=== PATIENT | male | born 1960 ===

== ENCOUNTER 2016-11-14 19:35 | Inpatient (IN) | payer BC ==
[2016-11-14 19:43] VITALS: BMI 26.6
[2016-11-14 21:51] LABS: BASO # 0.1 K/uL (0.0-0.2); BASO % 0.6 % (0.0-2.0); EOS % 0.2 % (0.0-4.0); HEMATOCRIT 40.5 % (35.0-51.0); LYMPH # 1.3 K/uL (1.0-4.3); LYMPH % 5.7 % (20.0-40.0); MEAN CELL VOLUME 92.4 fL (80.0-94.0); MEAN CORPUSCULAR HEMOGLOBIN 29.9 pg (27.0-31.0); MEAN CORPUSCULAR HGB CONC 32.3 g/dL (33.0-37.0); MEAN PLATELET VOLUME 11.7 fL (7.2-11.7); MONO # 1.6 K/uL (0.0-0.8); MONO % 7.1 % (0.0-10.0); NRBC % 0.1 % (0.0-2.0); PLATELET COUNT 430 K/uL (130-400); RED CELL DISTRIBUTION WIDTH 17.8 % (11.5-14.5)
[2016-11-14 21:57] LABS: CHLORIDE 92 mmol/L (98-107); POTASSIUM 3.7 mmol/L (3.6-5.2); SODIUM 135 mmol/L (132-148)
[2016-11-14 21:58] LABS: INR 1.4
[2016-11-14 21:59] LABS: BILIRUBIN,TOTAL 3.1 mg/dL (0.2-1.3); CARBON DIOXIDE 28 mmol/L (22-30); GFR AFRICAN-AMERICAN > 60
[2016-11-14 22:00] LABS: ALB/GLOB RATIO 0.8 (1.0-2.1); ALKALINE PHOSPHATASE 287 U/L (38-126); ALT/SGPT 52 U/L (21-72); AST/SGOT 176 U/L (17-59); BLOOD UREA NITROGEN 15 mg/dL (9-20); CALCIUM 8.6 mg/dl (8.6-10.4); GLUCOSE,RANDOM 113 mg/dL (75-110); PHOSPHOROUS 3.5 mg/dL (2.5-4.5); TOTAL PROTEIN 7.9 g/dL (6.3-8.3)
[2016-11-14 22:01] LABS: ALCOHOL SERUM < 10 mg/dl (0-10); MAGNESIUM 1.8 mg/dL (1.6-2.3)
[2016-11-14 22:29] LABS: EOSINOPHIL 1 % (0-4); NEUTROPHIL 84 % (50-75); TOTAL CELLS COUNTED 100
[2016-11-14 22:31] LABS: LARGE PLATELETS PRESENT
[2016-11-14] MEDS ORDERED: Iohexol 240 (50 ml) PO STA (22:34)
[2016-11-14] MEDS ORDERED: Iohexol 240 (50 ml) ONE (22:45)
[2016-11-15] MEDS ORDERED: Iodixanol 320 MG/ML 100 ML BOTTLE IV ONE (00:52)
[2016-11-15 01:41] LABS: GRANULAR CAST 467 /lpf (0-1); RBC URINE 4 /hpf (0-3); URINE BACTERIA RARE (<OCC); URINE BILIRUBIN NEGATIVE (NEGATIVE); URINE BLOOD NEGATIVE (NEGATIVE); URINE COLOR Amber (YELLOW); URINE GLUCOSE (UA) NORMAL (Normal); URINE KETONE NEGATIVE (NEGATIVE); URINE LEUKOCYTE ESTERASE NEG Leu/uL (Negative); URINE PROTEIN 1+ mg/dL (NEGATIVE); URINE UROBILINOGEN NORMAL mg/dL (0.2-1.0); WBC URINE 26 /hpf (0-5)
--- NOTE | 2016-11-15 01:52 | CT ---
EXAM: CT Abdomen and Pelvis With Intravenous Contrast. CLINICAL HISTORY: 56 years old, male; Pain; Abdominal pain; Prior surgery; Patient HX: [id number]; Additional info: Abd pain TECHNIQUE: Axial computed tomography images of the abdomen and pelvis with intravenous contrast. This CT exam was performed using one or more of the following dose reduction techniques: automated exposure control, adjustment of the mA and/or kV according to patient size, and/or use of iterative reconstruction technique. Coronal and sagittal reformatted images were created and reviewed. CONTRAST: 100 mL of [id number] administered intravenously. EXAM DATE/TIME: 11/14/2016 10:35 PM COMPARISON: There are no prior studies for comparison. FINDINGS: Lower thorax: Heart size is normal. Lung bases are hyperinflated. There is dependent atelectasis. There is a small right pleural effusion. ABDOMEN: Liver: Hepatic contours are mildly nodular. There is a small cyst in the right lobe of the liver. Gallbladder and bile ducts: Gallbladder is collapsed. Common bile duct is unremarkable. Pancreas: Pancreas is unremarkable. Spleen: Spleen is unremarkable. Adrenals: Adrenals are unremarkable. Kidneys and ureters: Kidneys and ureters are unremarkable. Stomach and bowel: Stomach is almost completely empty. Rotation is normal. There is mild small bowel fold thickening. There is no obstruction. Appendix and terminal ileum are unremarkable.Colon is incompletely distended which limits evaluation. There is scattered diverticulosis Appendix: See stomach and bowel PELVIS: Bladder: Bladder is partially distended. Reproductive: Prostate is mildly enlarged. Seminal vesicles are unremarkable. ABDOMEN and PELVIS: Intraperitoneal space: There is a large amount of ascites in the abdomen and pelvis. There is no free air. Bones/joints: There are degenerative changes in the osseus structures. Soft tissues: unremarkable Vasculature: Vascular calcification Lymph nodes: There is a small calcified node in the mid abdomen. There is no para-aortic adenopathy. IMPRESSION: Cirrhosis with ascites; small bowel fold thickening consolidation versus edema; no CT findings of appendicitis or diverticulitis Additional findings as described above.
[2016-11-15] MEDS ORDERED: Ciprofloxacin 400mg/200ml D5W 200 ML IVPB STA (02:12)
[2016-11-15] MEDS ORDERED: metroNIDAZOLE IV 500 mg/100 ml 100 ML IVPB SCH (02:15)
[2016-11-15] MEDS ORDERED: Ciprofloxacin 400mg/200ml D5W 200 ML IVPB ONE (02:33)
[2016-11-15] MEDS ORDERED: metroNIDAZOLE IV 500 mg/100 ml 100 ML IVPB STA (02:38)
[2016-11-15] MEDS ORDERED: metroNIDAZOLE IV 500 mg/100 ml 100 ML ONE (04:10)
--- NOTE | 2016-11-15 05:32 | C.PDOC ---
Time Seen by Provider: 11/14/16 21:22 Chief Complaint (Nursing): Abdominal Pain History Per: Patient Onset/Duration Of Symptoms: Days (about 1 week) Current Symptoms Are (Timing): Still Present Severity: Moderate Location Of Pain/Discomfort: Diffuse Quality Of Discomfort: Unable To Describe, "Pain" Associated Symptoms: Nausea, Diarrhea Exacerbating Factors: None Alleviating Factors: None Additional History Per: Prior Records Past Medical History Reviewed: Historical Data, Nursing Documentation, Vital Signs Vital Signs: Last Vital Signs Temp 98.1 F 11/14/16 19:44 Pulse 107 H 11/14/16 19:44 Resp 20 11/14/16 19:44 BP 129/84 11/14/16 19:44 Pulse Ox 99 11/14/16 19:44 - Medical History PMH: Anxiety, Arthritis, HTN Other PMH: Liver Cirrhosis due to alcoholism Surgical History: Endoscopy - [facility] Procedures CAUTERY TO STOP EPISTAX (10/04/05) CLOS REDUCTION NASAL FX (10/04/05) DETOXIFICATION SERVICES FOR SUBSTANCE ABUSE TREATMENT (06/30/16) DRAINAGE OF PERITONEAL CAVITY, PERCUTANEOUS APPROACH (10/30/16) EXCISION OF DUODENUM, ENDO, DIAGN (10/30/16) INJECT/INFUSE NEC (04/05/14) MEDICATION MANAGEMENT (06/30/16) TETANUS TOXOID ADMINIST (10/04/05) Family History: States: Unknown Family Hx - Social History Hx Tobacco Use: No Hx Alcohol Use: Yes (Drinks 10beers daily) Hx Substance Use: Yes (States he quit using cocaine 10yrs ago) - Immunization History Hx Tetanus Toxoid Vaccination: Yes Hx Influenza Vaccination: Yes Hx Pneumococcal Vaccination: No Review Of Systems Except As Marked, All Systems Reviewed And Found Negative. Constitutional: Negative for: Fever Cardiovascular: Negative for: Chest Pain Respiratory: Negative for: Shortness of Breath Gastrointestinal: Positive for: Abdominal Pain, Hematochezia Genitourinary: Negative for: Dysuria Musculoskeletal: Negative for: Neck Pain Neurological: Negative for: Weakness, Numbness, Seizures, Altered Mental Status Physical Exam - Physical Exam Appears: No Acute Distress, Chronically Ill Skin: Warm, Dry Head: Atraumatic, Normacephalic Eye(s): bilateral: PERRL, EOMI Neck: Normal ROM, Supple Cardiovascular: Rhythm Regular Respiratory: Normal Breath Sounds, No Accessory Muscle Use Gastrointestinal/Abdominal: Soft, Tenderness (nonspecific), Distention, Ascites Rectal: Heme Positive, Other (No stool in rectal vault) Back: No CVA Tenderness Extremity: Normal ROM, No Pedal Edema, No Calf Tenderness Neurological/Psych: Oriented x3, Normal Motor, Normal Sensation ED Course And Treatment - Laboratory Results Result Diagrams: 11/14/16 21:43 11/14/16 21:43 Lab Interpretation: Abnormal Interpretation Of Abnormal: Leukocytosis with left shift. O2 Sat by Pulse Oximetry: 99 Pulse Ox Interpretation: Normal - CT Scan/US CT abd/pelvis Other Rad Studies (CT/US): Read By Radiologist, Radiology Report Reviewed CT/US Interpretation: IMPRESSION: Cirrhosis with ascites; small bowel fold thickening consolidation. versus edema; no CT findings of appendicitis or diverticulitis. . . Additional findings as described above. Progress - Interventions Interventions:: Observation - Medications Administered Intravenous: Antiemetic, Other (PPI. Abx.) - Data Reviewed Data Reviewed: Lab, Diagnostic imaging, Old records - Patient Status Patient status: Partially improved - Continuity of Care Discussed patient case with:: Patient, ED Nurse, On-call PMD-pt unassigned - Patient Plan Patient Plan: Admission Disposition Discussed With DrJean: Marin Castillo Jr. Comment: He accepted pt on his service. Doctor Will See Patient In The: Hospital Counseled Patient/Family Regarding: Studies Performed, Diagnosis - Disposition Disposition: HOSPITALIZED Disposition Time: 05:00 Condition: FAIR - Clinical Impression Clinical Impression: Abdominal pain, Rectal bleeding, Leukocytosis, Ascites, Alcohol abuse
--- NOTE | 2016-11-15 07:16 | CP.PCM.HP ---
History of Present Illness - History of Present Illness History of Present Illness: CC: Abd pain, Rectal bleeding HPI: Patient is a 56 year old male, with PMHx of alcoholic cirrhosis, ascites, gout, CAD, hypertension, and hyperlipidemia, who presents to the emergency department with worsening abdominal pain and rectal bleeding. He reports the abdominal pain started "a couple of months ago," and over that time frame has occurred intermittently but has been getting worse in the past week. Patient reports distention from recurrent ascites has also gotten worse in the past week. Pt admits that ascites begin to effect his breathing at the beginning of the month , and had his first paracentesis at [facility]. He also admits bloody bowel movements that began "over a month ago," went away for two weeks, then returned. He reports the hematochezia started off as mark blood interwoven in the stool, but now he admits 6 episodes of bloody, watery diarrhea in the last three days. Pt also admits EGD at [facility] during same admission as paracentesis in the beginning of October, but left AMA and does not know the results. He denies previous colonoscopy. Pt denies chest pain, palpitations, headache, dizziness, hematemesis, hematuria, dysuria, fever, chills, or confusion. PMHx: alcoholic cirrhosis, ascites, gout, HTN, and hyperlipidemia PSHx: Paracentesis/EGD (early this month at [facility] - unknown results, pt left AMA) Fam Hx: Father DM/IL; Mother - CVA SHx: Tobacco - 2 yrs @ 1 ppd when teenager, 5-15 "Airplane sized" bottles of vodka daily +/- 5-10 beers daily; pt used to drink 1.5 L daily of Vodka at worst "when younger," ; Admits 5-8 year cocaine use, but quit 10 years ago; Pt lives in apartment in [place]; Retired Allergies: Denies PMD: Ronit Clark ([facility]) Meds: Colchicine 0.6 mg daily, Vit B1 100mg PO daily, Amlodipine 5mg Daily, Metoprolol XL 100mg Daily, Pepcid 20mg PO DAily, Vit D3 1000iu daily, ASA 81mg Daily, Atorvastatin 40mg HS, Present on Admission - Present on Admission Any Indicators Present on Admission: No Review of Systems - Constitutional Constitutional: absent: Chills, Fever, Weight Loss - EENT Eyes: absent: Blurred Vision, Change in Vision Ears: absent: Decreased Hearing Nose/Mouth/Throat: absent: Sore Throat - Cardiovascular Cardiovascular: absent: Chest Pain, Chest Pain at Rest, Dyspnea, Dyspnea on Exertion - Respiratory Respiratory: absent: Cough, Dyspnea, Hemoptysis, Dyspnea on Exertion - Gastrointestinal Gastrointestinal: Abdominal Pain (diffuse, intermittent), Bloating, Hematochezia (blood red blood in BM x 6 episodes in 3 days). absent: Dyspepsia , Dysphagia, Heartburn, Hematemesis, Nausea, Vomiting - Genitourinary Genitourinary: absent: Dysuria, Hematuria - Musculoskeletal Musculoskeletal: absent: Back Pain, Numbness, Tingling - Neurological Neurological: absent: Headaches, Weakness - Psychiatric Psychiatric: absent: Anxiety, Depression - Endocrine Endocrine: absent: Polydipsia, Polyphagia, Polyuria Past Patient History - Infectious Disease Hx of Infectious Diseases: None - Tetanus Immunizations Tetanus Immunization: Unknown - Past Medical History & Family History Past Medical History?: Yes - Past Social History Smoking Status: Former Smoker - CARDIAC Hx Hypertension: Yes - PULMONARY Hx Respiratory Disorders: No - NEUROLOGICAL Hx Neurological Disorder: No - HEENT Hx HEENT Problems: No - RENAL Hx Chronic Kidney Disease: No - ENDOCRINE/METABOLIC Hx Endocrine Disorders: No - HEMATOLOGICAL/ONCOLOGICAL Hx Blood Transfusions: No Hx Blood Transfusion Reaction: No - INTEGUMENTARY Hx Dermatological Problems: No - MUSCULOSKELETAL/RHEUMATOLOGICAL Hx Arthritis: Yes - GASTROINTESTINAL Hx Gastroesophageal Reflux: Yes - GENITOURINARY/GYNECOLOGICAL Hx Genitourinary Disorders: No - PSYCHIATRIC Hx Anxiety: Yes Hx Substance Use: Yes (States he quit using cocaine 10yrs ago) - SURGICAL HISTORY Hx Surgeries: Yes (cystoscopy) - ANESTHESIA Hx Anesthesia Reactions: No Hx Malignant Hyperthermia: No Meds Allergies/Adverse Reactions: Allergies Allergy/AdvReac Type Severity Reaction Status Date / Time No Known Allergies Allergy Verified 11/14/16 19:42 Physical Exam - Constitutional Appears: No Acute Distress, Chronically Ill - Head Exam Head Exam: ATRAUMATIC, NORMAL INSPECTION, NORMOCEPHALIC - Eye Exam Eye Exam: Conjunctival injection, EOMI, Scleral icterus Pupil Exam: PERRL - ENT Exam ENT Exam: Mucous Membranes Moist - Respiratory Exam Respiratory Exam: Clear to Auscultation Bilateral. absent: Accessory Muscle Use , Rales, Rhonchi, Wheezes - Cardiovascular Exam Cardiovascular Exam: REGULAR RHYTHM, +S1, +S2 - GI/Abdominal Exam GI & Abdominal Exam: Distended, Soft, Tenderness (diffuse). absent: Guarding - Rectal Exam Additional comments: no mark blood, no stool in rectal vault - Extremities Exam Extremities exam: Positive for: normal inspection, pedal pulses present. Negative for: pedal edema - Back Exam Back exam: absent: CVA tenderness (L), CVA tenderness (R) - Neurological Exam Neurological exam: Alert, Oriented x3 - Psychiatric Exam Psychiatric exam: Normal Affect, Normal Mood - Skin Skin Exam: Dry, Warm Results - Vital Signs Recent Vital Signs: Last Vital Signs Temp 97.7 F 11/15/16 06:55 Pulse 118 H 11/15/16 06:55 Resp 20 11/15/16 06:55 BP 146/82 11/15/16 06:55 Pulse Ox 95 11/15/16 06:55 - Labs Result Diagrams: 11/14/16 21:43 11/14/16 21:43 Assessment & Plan - Assessment and Plan (Free Text) Assessment: Abdominal pain Diffuse pain for two months; Pt reports improved with drainage CT A/P: Ascites, thickening of intestine, no evidence of appendicitis/ diverticulitis (wet read: f/u offical read) Pipercillin/Tazobactam 3.375mg IV Q6h Cipro/Flagyl IV given once in ED Alcoholic Liver Cirrhosis Ascites evident on exam - one prior drainage, per pt, at [facility] in beginning of October Consult: IR, help appreciated - paracentesis ordered AST: 176, ALT: 52; Alk phos 287; T bili 3.1; albumin 3.5 Lipase 100 UDS: negative, Alcohol < 10 f/u hepatitis panel, HIV Rectal bleeding Pt states one month of bloody BM, 6 episodes in last three days of bloody diarrhea Denies prior colonoscopy, EGD this month at [facility] NPO diet Type and screen Stool Occult blood positive Consult: Tepler/Avi - f/u reccs Leukocytosis Afebrile, Tachycardic WBC: 23, with left shift Pipercillin/Tazobactam 3.375mg IV Q6h Cipro/Flagyl IV given once in ED f/u blood, urine cultures Gout Hold home med: colchicine Hypertension Amlodipine 5mg PO daily Toprol 100 mg PO daily CAD ASA 81 mg Daily (hold) Lipitor 40mg PO daily Prophylaxis SCDs HOLD heparin due to hematochezia Protonix 40mg IV daily
[2016-11-15] MEDS: Piperacillin/Tazobact 3.375 GM in Sodium Chloride 100 ML IVPB SCH ×3 (09:13→20:11)
[2016-11-15 10:41] LABS: BASO # 0.1 K/uL (0.0-0.2); BASO % 0.6 % (0.0-2.0); EOS # 0.2 K/uL (0.0-0.7); EOS % 0.8 % (0.0-4.0); HEMATOCRIT 37.7 % (35.0-51.0); LYMPH # 1.1 K/uL (1.0-4.3); MEAN CELL VOLUME 92.6 fL (80.0-94.0); MEAN CORPUSCULAR HEMOGLOBIN 29.6 pg (27.0-31.0); MEAN PLATELET VOLUME 11.3 fL (7.2-11.7); MONO # 1.5 K/uL (0.0-0.8); MONO % 7.1 % (0.0-10.0); NRBC % 0.1 % (0.0-2.0); PLATELET COUNT 328 K/uL (130-400); RED CELL DISTRIBUTION WIDTH 17.6 % (11.5-14.5); WHITE BLOOD COUNT 21.4 K/uL (4.8-10.8)
[2016-11-15 10:55] LABS: CHLORIDE 92 mmol/L (98-107); POTASSIUM 3.1 mmol/L (3.6-5.2); SODIUM 135 mmol/L (132-148)
[2016-11-15 10:57] LABS: ALB/GLOB RATIO 0.8 (1.0-2.1); ALKALINE PHOSPHATASE 230 U/L (38-126); AST/SGOT 155 U/L (17-59); BILIRUBIN,TOTAL 3.3 mg/dL (0.2-1.3); BLOOD UREA NITROGEN 13 mg/dL (9-20); CARBON DIOXIDE 27 mmol/L (22-30); GFR AFRICAN-AMERICAN > 60; TOTAL PROTEIN 7.4 g/dL (6.3-8.3)
[2016-11-15 10:58] LABS: ALT/SGPT 46 U/L (21-72); CALCIUM 8.2 mg/dl (8.6-10.4); GLUCOSE,RANDOM 87 mg/dL (75-110); MAGNESIUM 1.7 mg/dL (1.6-2.3); PHOSPHOROUS 4.1 mg/dL (2.5-4.5)
[2016-11-15] MEDS ORDERED: Potassium Chloride 20 mEq ER Tab PO ONE (11:15)
[2016-11-15 11:17] LABS: NEUTROPHIL 87 % (50-75); TOTAL CELLS COUNTED 100
[2016-11-15 11:18] LABS: LARGE PLATELETS PRESENT
--- NOTE | 2016-11-15 13:30 | PCM.SURG1 ---
Surgeon's Initial Post Op Note - Surgeon's Notes Surgeon: Frandy Cortes MD Bowling Alley Mechanic: NONE Type of Anesthesia: Local Pre-Operative Diagnosis: Ascites, abdominal pain. Operative Findings: US showed a moderate amount of ascites Post-Operative Diagnosis: Ascites Operation Performed: US guided paracentesis. Specimen/Specimens Removed: 4.2 liters of straw colored fluid Estimated Blood Loss: EBL {In ML}: 1 Blood Products Given: N/A Drains Used: No Drains Post-Op Condition: Fair Date of Surgery/Procedure: 11/15/16 Time of Surgery/Procedure: 13:25
[2016-11-15] MEDS: METRONIDAZOLE 500 MG/100 ML IVPB SCH ×2 (14:39→21:56)
[2016-11-15 15:10] LABS: CARCINOEMBRYONIC ANTIGEN 20.3 ng/mL (0-3.0)
[2016-11-15 15:14] LABS: CA 19-9 < 1.4 U/mL (0-37)
--- NOTE | 2016-11-15 21:52 | CP.PCM.PN ---
<Jimena Eisenberg - Last Filed: 11/15/16 21:49> Subjective - Date & Time of Evaluation Date of Evaluation: 11/15/16 Time of Evaluation: 09:15 - Subjective Subjective: Internal medicine progress note for Dr. Oracio Eisenberg, PGY-1 Pt S & E at bedside. Pt reports continued abdominal pain/distention- states that he knew it was going to happen when he resumed drinking ETOH after previous paracentesis. Admits to SOB, rectal bleeding. Denies N/V/F/C, CP, LE swelling. Objective - Vital Signs/Intake and Output Vital Signs (last 24 hours): Temp Pulse Resp BP Pulse Ox 97.4 F L 111 H 20 113/74 96 11/15/16 16:24 11/15/16 16:24 11/15/16 16:24 11/15/16 16:24 11/15/16 16:24 Intake and Output: 11/15/16 11/16/16 18:59 06:59 Intake Total 240 Balance 240 - Medications Medications: Current Medications Amlodipine Besylate (Norvasc) [address] [facility] Aspirin (Ecotrin) [address] [facility] Home Med (Atorvastatin [Lipitor]) [address] [facility] Home Med (Multivitamin With Folic Acid [Sm One Daily Multivitamin Tab]) [address] [facility] Piperacillin Sod/Tazobactam (Sod 3.375 gm/ Sodium Chloride) 100 mls @ 200 mls/ hr IVPB Q6H [facility] Last Admin: 11/15/16 20:11 Dose: 200 mls/hr Metronidazole (Flagyl) 100 mls @ 100 mls/hr IVPB Q8H [facility] Last Admin: 11/15/16 14:39 Dose: 100 mls/hr Metoprolol Succinate (Toprol Xl) 100 mg PO DAILY [facility] Pantoprazole Sodium (Protonix Inj) [address] [facility] Last Admin: 11/15/16 09:23 Dose: 40 mg Thiamine HCl (Vitamin B1 Tab) [address] [facility] - Labs Labs: 11/15/16 10:35 11/15/16 10:35 PT 15.6 SECONDS (9.7-12.2) H 11/14/16 21:43 INR 1.4 11/14/16 21:43 APTT 39 SECONDS (21-34) H 11/14/16 21:43 - Constitutional Appears: Non-toxic, No Acute Distress - Head Exam Head Exam: ATRAUMATIC, NORMAL INSPECTION, NORMOCEPHALIC - Eye Exam Eye Exam: EOMI, Normal appearance, PERRL Pupil Exam: NORMAL ACCOMODATION, PERRL - ENT Exam ENT Exam: Mucous Membranes Moist, Normal Exam - Neck Exam Neck Exam: Full ROM, Normal Inspection - Respiratory Exam Respiratory Exam: Decreased Breath Sounds (at bases), Clear to Ausculation Bilateral, NORMAL BREATHING PATTERN. absent: Rales, Rhonchi, Wheezes - Cardiovascular Exam Cardiovascular Exam: REGULAR RHYTHM, +S1, +S2 - GI/Abdominal Exam GI & Abdominal Exam: Distended (grossly), Firm, Tenderness, Hypoactive Bowel Sounds. absent: Guarding, Rigid, Soft, Rebound - Rectal Exam Rectal Exam: Deferred (previously examined) - Extremities Exam Extremities Exam: Full ROM, Normal Inspection. absent: Pedal Edema - Back Exam Back Exam: Full ROM, NORMAL INSPECTION - Neurological Exam Neurological Exam: Alert, Awake, CN II-XII Intact, Oriented x3 - Psychiatric Exam Psychiatric exam: Normal Affect, Normal Mood - Skin Skin Exam: Dry, Intact, Normal Color, Warm. absent: Pallor Assessment and Plan - Assessment and Plan (Free Text) Assessment: Abdominal pain due to ETOH liver cirrhosis Abdomen grossly distended Diffuse pain for two months; Pt reports improved with paracentesis CT A/P: Cirrhosis with ascites; small bowel fold thickening consolidation vs edema; no CT findings of appendicitis or diverticulitis Pipercillin/Tazobactam 3.375mg IV Q6h AST: 155/ 46 from 176/52 Alk phos 230 from 287 T bili 3.3 from 3.1 Albumin 3.2 from 3.5 Lipase 100 UDS: negative, Alcohol < 10 Hepatitis panel neg HIV neg For IR paracentesis Cont home med: MV, thiamine CEA 20.3 AFP 5.8 CA 19-9 <1.4 Rectal bleeding Pt states one month of bloody BM, 6 episodes in last three days of bloody diarrhea Denies prior colonoscopy, EGD this month at [place] NPO diet Type and screen Stool Occult blood positive GI consulted- Julio César- rec for flagyl Leukocytosis Afebrile, Tachycardic WBC: 21.4 from 23, with left shift Pipercillin/Tazobactam 3.375mg IV Q6h FU blood cxr FU urine cxr Hypokalemia k 3.1 Replaced K- 60 mEq Monitor Gout Hold home med: colchicine Hypertension Amlodipine 5mg PO daily Toprol 100 mg PO daily CAD ASA 81 mg Daily (hold) Lipitor 40mg PO daily Prophylaxis SCDs Contraindications to VTE - bleeding Protonix 40mg IV daily Dispo Started hepatic diet Cont current mgmt Reinforced ETOH abstinence importance DW attending (All mgmt as per Dr. Castillo) <Marin Castillo Jr. - Last Filed: 11/16/16 12:08> Objective - Vital Signs/Intake and Output Vital Signs (last 24 hours): Temp Pulse Resp BP Pulse Ox 98.2 F 121 H 20 108/76 96 11/16/16 09:00 11/16/16 09:00 11/16/16 09:00 11/16/16 09:00 11/16/16 09:00 Intake and Output: 11/16/16 11/16/16 06:59 18:59 Intake Total 440 Balance 440 - Medications Medications: Current Medications Amlodipine Besylate (Norvasc) [address] [facility] Last Admin: 11/16/16 09:15 Dose: 5 mg Aspirin (Ecotrin) [address] [facility] Last Admin: 11/16/16 09:15 Dose: 81 mg Bisacodyl (Dulcolax) 10 mg PO ONCE ONE Stop: 11/17/16 17:01 Furosemide (Lasix) [address] [facility] Piperacillin Sod/Tazobactam (Sod 3.375 gm/ Sodium Chloride) 100 mls @ 200 mls/ hr IVPB Q6H [facility] Last Admin: 11/16/16 09:15 Dose: 200 mls/hr Metronidazole (Flagyl) 100 mls @ 100 mls/hr IVPB Q8H [facility] Last Admin: 11/16/16 06:27 Dose: 100 mls/hr Metoclopramide HCl (Reglan) [address] [facility] Metoprolol Succinate (Toprol Xl) [address] [facility] Last Admin: 11/16/16 09:15 Dose: 100 mg Multivitamins (Hexavitamin) [address] [facility] Last Admin: 11/16/16 09:15 Dose: 1 tab Pantoprazole Sodium (Protonix Inj) [address] [facility] Last Admin: 11/16/16 09:15 Dose: 40 mg Polyethylene Glycol/Electrolytes (Golytely) 4,000 ml PO ONCE ONE Stop: 11/17/16 10:01 Rosuvastatin Calcium (Crestor) 20 mg PO HS [facility] Last Admin: 11/15/16 22:00 Dose: 20 mg Spironolactone (Aldactone) 25 mg PO BID [facility] Thiamine HCl (Vitamin B1 Tab) 100 mg PO DAILY [facility] Last Admin: 11/16/16 09:15 Dose: 100 mg - Labs Labs: 11/16/16 11:16 11/16/16 11:16 PT 15.6 SECONDS (9.7-12.2) H 11/14/16 21:43 INR 1.4 11/14/16 21:43 APTT 39 SECONDS (21-34) H 11/14/16 21:43 Attending/Attestation - Attestation I have personally seen and examined this patient.: Yes I have fully participated in the care of the patient.: Yes I have reviewed all pertinent clinical information, including history, physical exam and plan: Yes
[2016-11-16] MEDS: Piperacillin/Tazobact 3.375 GM in Sodium Chloride 100 ML IVPB SCH ×4 (03:15→20:28)
[2016-11-16] MEDS: METRONIDAZOLE 500 MG/100 ML IVPB SCH ×3 (06:27→21:54)
--- NOTE | 2016-11-16 08:45 | PN ---
DATE: 11/16/2016 LOCATION: 569, bed A. SUBJECTIVE: This is a 56-year-old male seen and examined in rounds for GI consultation on 11/15/16 a s recommended and requested by the admitting MD, reexamined again today with much less reported recta l bleeding, had abdominal paracentesis with a complaint of lower extremities mild edematous changes. The patient appears to be more awake, alert, oriented with a complaint of intermittent period of ada rrhea. Most recent lab results showed leukocytosis of 21.4 with normal hemoglobin and hematocrit as per yesterday and normal platelet count with increased CEA level to 20.3, but normal alpha fetoprotei n and low albumin 3.2 with increased AST to 155, but normal ALT compatible with alcoholism with alcoh olic liver disease. Hepatitis profile reported to be negative. PHYSICAL EXAMINATION: GENERAL: A 56-year-old male. VITAL SIGNS: Afebrile with pulse of 110, respiratory rate 20-22 with blood pressure of 116/72. HEENT: Showed pale, dry oral mucoid membrane. Nonicteric sclerae. LUNGS: Few scattered crepitation, decreased air entry at bases. HEART: Positive S1 and S2. ABDOMEN: Soft. Bowel sounds are present. No mass or organomegaly. No rebound tenderness or guardi ng. Mild abdominal distention with small amount of ascites seen. RECTAL: Positive tone, guaiac positive stool. IMPRESSION: 1. Alcoholism with alcoholic liver disease. 2. Abnormal liver function tests secondary to above. 3. Rectal bleeding with elevated CEA level, to rule out lower gastrointestinal tract source of bleed ing versus occult gastrointestinal malignancy. The possibility of upper gastrointestinal blood loss should be ruled in or out despite the patient had upper endoscopy somewhere several days ago as repor serge. 4. Leukocytosis, rule out infectious diarrhea versus mechanical diarrhea. 5. Known history of gouty arthritis, hypertension and reported coronary artery disease. 6. Electrolyte imbalance, for IV potassium supplement. 7. Known history of anxiety syndrome as well as osteoarthritis. SUGGESTION: 1. Agree with your plan. 2. The patient for colonoscopy after adequate preparation. Charmaine Angela MD cc: 14 TT: 11/16/2016 08:45:07 Confirmation # [id number] Dictation # [id number] tn
[2016-11-16] MEDS: Metoprolol Succinate 100 mg XL Tab PO SCH (09:15)
[2016-11-16] MEDS: Multiple Vitamins Tab PO SCH (09:15)
[2016-11-16 11:30] LABS: BASO # 0.1 K/uL (0.0-0.2); BASO % 0.8 % (0.0-2.0); EOS # 0.2 K/uL (0.0-0.7); EOS % 1.3 % (0.0-4.0); HEMATOCRIT 37.1 % (35.0-51.0); LYMPH # 0.7 K/uL (1.0-4.3); LYMPH % 3.6 % (20.0-40.0); MEAN CELL VOLUME 91.8 fL (80.0-94.0); MEAN CORPUSCULAR HEMOGLOBIN 29.3 pg (27.0-31.0); MEAN PLATELET VOLUME 11.4 fL (7.2-11.7); MONO # 1.3 K/uL (0.0-0.8); MONO % 6.7 % (0.0-10.0); PLATELET COUNT 279 K/uL (130-400); WHITE BLOOD COUNT 18.8 K/uL (4.8-10.8)
[2016-11-16 11:46] LABS: CHLORIDE 95 mmol/L (98-107); POTASSIUM 3.8 mmol/L (3.6-5.2); SODIUM 135 mmol/L (132-148)
[2016-11-16 11:48] LABS: BILIRUBIN,TOTAL 3.2 mg/dL (0.2-1.3); CARBON DIOXIDE 26 mmol/L (22-30); GFR AFRICAN-AMERICAN > 60
[2016-11-16 11:49] LABS: ALB/GLOB RATIO 0.7 (1.0-2.1); ALKALINE PHOSPHATASE 186 U/L (38-126); ALT/SGPT 38 U/L (21-72); AST/SGOT 123 U/L (17-59); BLOOD UREA NITROGEN 11 mg/dL (9-20); GLUCOSE,RANDOM 115 mg/dL (75-110); TOTAL PROTEIN 6.7 g/dL (6.3-8.3)
[2016-11-16 11:57] LABS: BASOPHIL 1 % (0-2); EOSINOPHIL 3 % (0-4); NEUTROPHIL 87 % (50-75); TOTAL CELLS COUNTED 100
[2016-11-16 11:58] LABS: GIANT PLATELETS PRESENT; LARGE PLATELETS PRESENT
--- NOTE | 2016-11-16 14:09 | CP.PCM.PN ---
Subjective - Date & Time of Evaluation Date of Evaluation: 11/16/16 Time of Evaluation: 10:00 - Subjective Subjective: PGY2 on medicine Dr. Castillo service: Pt seen and examined at bedside this morning. Pt reports multiple episodes of reddish colored watery diarrhea overnight and this morning. Pt has no other complaints at the moment. Objective - Vital Signs/Intake and Output Vital Signs (last 24 hours): Temp Pulse Resp BP Pulse Ox 98.2 F 121 H 20 108/76 96 11/16/16 09:00 11/16/16 09:00 11/16/16 09:00 11/16/16 09:00 11/16/16 09:00 Intake and Output: 11/16/16 11/16/16 06:59 18:59 Intake Total 440 Balance 440 - Medications Medications: Current Medications Amlodipine Besylate (Norvasc) 5 mg PO DAILY [facility] Last Admin: 11/16/16 09:15 Dose: 5 mg Aspirin (Ecotrin) 81 mg PO DAILY [facility] Last Admin: 11/16/16 09:15 Dose: 81 mg Bisacodyl (Dulcolax) 10 mg PO ONCE ONE Stop: 11/17/16 17:01 Furosemide (Lasix) 80 mg IVP Q12 [facility] Piperacillin Sod/Tazobactam (Sod 3.375 gm/ Sodium Chloride) 100 mls @ 200 mls/ hr IVPB Q6H [facility] Last Admin: 11/16/16 13:43 Dose: 200 mls/hr Metronidazole (Flagyl) 100 mls @ 100 mls/hr IVPB Q8H [facility] Last Admin: 11/16/16 13:43 Dose: 100 mls/hr Metoclopramide HCl (Reglan) 5 mg IVP ACHS [facility] Metoprolol Succinate (Toprol Xl) 100 mg PO DAILY [facility] Last Admin: 11/16/16 09:15 Dose: 100 mg Multivitamins (Hexavitamin) 1 tab PO DAILY [facility] Last Admin: 11/16/16 09:15 Dose: 1 tab Pantoprazole Sodium (Protonix Inj) 40 mg IVP DAILY [facility] Last Admin: 11/16/16 09:15 Dose: 40 mg Polyethylene Glycol/Electrolytes (Golytely) 4,000 ml PO ONCE ONE Stop: 11/17/16 10:01 Rosuvastatin Calcium (Crestor) 20 mg PO [facility] Last Admin: 11/15/16 22:00 Dose: 20 mg Spironolactone (Aldactone) 25 mg PO BID [facility] Last Admin: 11/16/16 13:21 Dose: 25 mg Thiamine HCl (Vitamin B1 Tab) 100 mg PO DAILY [facility] Last Admin: 11/16/16 09:15 Dose: 100 mg - Labs Labs: 11/16/16 11:16 11/16/16 11:16 PT 15.6 SECONDS (9.7-12.2) H 11/14/16 21:43 INR 1.4 11/14/16 21:43 APTT 39 SECONDS (21-34) H 11/14/16 21:43 - Constitutional Appears: Non-toxic, No Acute Distress - Head Exam Head Exam: NORMAL INSPECTION, NORMOCEPHALIC - Eye Exam Eye Exam: Normal appearance Pupil Exam: NORMAL ACCOMODATION - ENT Exam ENT Exam: Mucous Membranes Moist - Respiratory Exam Respiratory Exam: Clear to Ausculation Bilateral, NORMAL BREATHING PATTERN. absent: Rhonchi, Wheezes - Cardiovascular Exam Cardiovascular Exam: REGULAR RHYTHM, +S1, +S2. absent: Gallop, Rubs - GI/Abdominal Exam GI & Abdominal Exam: Distended, Soft, Normal Bowel Sounds. absent: Tenderness - Neurological Exam Neurological Exam: Alert, Awake, Oriented x3 - Psychiatric Exam Psychiatric exam: Normal Affect, Normal Mood - Skin Skin Exam: Dry, Intact Assessment and Plan - Assessment and Plan (Free Text) Assessment: Abdominal pain due to ETOH liver cirrhosis 11/16: S/P paracentesis with 4.2L fluid removed. Spironolactone 25mg PO BID and Lasix 80mg IV q12H added. Abdomen grossly distended Diffuse pain for two months; Pt reports improved with paracentesis CT A/P: Cirrhosis with ascites; small bowel fold thickening consolidation vs edema; no CT findings of appendicitis or diverticulitis Pipercillin/Tazobactam 3.375mg IV Q6h AST: 155/ 46 from 176/52 Alk phos 230 from 287 T bili 3.3 from 3.1 Albumin 3.2 from 3.5 Lipase 100 UDS: negative, Alcohol < 10 Hepatitis panel neg HIV neg For IR paracentesis Cont home med: MV, thiamine CEA 20.3 AFP 5.8 CA 19-9 <1.4 Rectal bleeding Colonoscopy and EGD on Friday. Flagyl 500mg IV q8H (11/15/16) Pt states one month of bloody BM, 6 episodes in last three days of bloody diarrhea Denies prior colonoscopy, EGD this month at [facility] Friday morning. Type and screen Stool Occult blood positive GI consulted- Julio César- rec for flagyl CEA positive. F/U C.diff Leukocytosis Afebrile, Tachycardic WBC: 21.4 from 23, with left shift Pipercillin/Tazobactam 3.375mg IV Q6h FU blood cxr FU urine cxr Hypokalemia k 3.1 Replaced K- 60 mEq Monitor Gout Hold home med: colchicine Hypertension Amlodipine 5mg PO daily Toprol 100 mg PO daily CAD ASA 81 mg Daily (hold) Lipitor 40mg PO daily Prophylaxis SCDs Contraindications to VTE - bleeding Protonix 40mg IV daily Dispo Started hepatic diet Cont current mgmt Reinforced ETOH abstinence importance DW attending (All mgmt as per Dr. Castillo)
[2016-11-17] MEDS: Piperacillin/Tazobact 3.375 GM in Sodium Chloride 100 ML IVPB SCH ×4 (02:27→20:20)
[2016-11-17] MEDS: METRONIDAZOLE 500 MG/100 ML IVPB SCH ×3 (05:58→21:39)
[2016-11-17 07:15] LABS: BASO # 0.2 K/uL (0.0-0.2); BASO % 1.1 % (0.0-2.0); EOS # 0.4 K/uL (0.0-0.7); EOS % 2.3 % (0.0-4.0); HEMATOCRIT 34.3 % (35.0-51.0); LYMPH # 0.7 K/uL (1.0-4.3); LYMPH % 3.8 % (20.0-40.0); MEAN CELL VOLUME 91.5 fL (80.0-94.0); MEAN CORPUSCULAR HEMOGLOBIN 30.4 pg (27.0-31.0); MEAN CORPUSCULAR HGB CONC 33.3 g/dL (33.0-37.0); MONO # 1.3 K/uL (0.0-0.8); MONO % 7.4 % (0.0-10.0); PLATELET COUNT 240 K/uL (130-400); RED CELL DISTRIBUTION WIDTH 17.6 % (11.5-14.5); WHITE BLOOD COUNT 17.6 K/uL (4.8-10.8)
[2016-11-17 07:17] LABS: CHLORIDE 93 mmol/L (98-107)
[2016-11-17 07:18] LABS: POTASSIUM 2.9 mmol/L (3.6-5.2); SODIUM 133 mmol/L (132-148)
[2016-11-17 07:20] LABS: ALB/GLOB RATIO 0.8 (1.0-2.1); AST/SGOT 104 U/L (17-59); BILIRUBIN,TOTAL 2.6 mg/dL (0.2-1.3); CARBON DIOXIDE 27 mmol/L (22-30); GFR AFRICAN-AMERICAN > 60
[2016-11-17 07:21] LABS: ALKALINE PHOSPHATASE 176 U/L (38-126); ALT/SGPT 45 U/L (21-72); BLOOD UREA NITROGEN 11 mg/dL (9-20); CALCIUM 7.3 mg/dl (8.6-10.4); GLUCOSE,RANDOM 84 mg/dL (75-110)
[2016-11-17] MEDS: Multiple Vitamins Tab PO SCH (09:09)
[2016-11-17] MEDS: Metoprolol Succinate 100 mg XL Tab PO SCH (09:09)
[2016-11-17] MEDS ORDERED: Potassium Chloride 20 mEq ER Tab PO ONE (09:22)
[2016-11-17 09:33] LABS: EOSINOPHIL 2 % (0-4); NEUTROPHIL 86 % (50-75); TOTAL CELLS COUNTED 100
[2016-11-17 09:34] LABS: LARGE PLATELETS PRESENT
[2016-11-17 09:35] LABS: GIANT PLATELETS PRESENT
[2016-11-17] MEDS ORDERED: Peg-Electrolyte Oral Soln 4L (Golytely) PO ONE (10:00)
[2016-11-17] MEDS ORDERED: Potassium Chloride 10 mEq ER Tab PO STA (10:27)
--- NOTE | 2016-11-17 10:57 | CP.PCM.PN ---
Subjective - Date & Time of Evaluation Date of Evaluation: 11/17/16 Time of Evaluation: 09:00 - Subjective Subjective: PGY2 on medicine Dr. Castillo service: Pt seen and examined at bedside this morning. Pt complains arm cramps yesterday and abdominal distention. Pt also complains watery diarrhea overnight but not as often as before. Pt denied other complaints at the moment. Objective - Vital Signs/Intake and Output Vital Signs (last 24 hours): Temp Pulse Resp BP Pulse Ox 98.1 F 89 20 103/70 96 11/17/16 08:00 11/17/16 08:00 11/17/16 08:00 11/17/16 08:00 11/17/16 08:00 Intake and Output: 11/17/16 11/17/16 06:59 18:59 Intake Total 500 Output Total 1000 Balance -500 - Medications Medications: Current Medications Amlodipine Besylate (Norvasc) 5 mg PO DAILY [facility] Last Admin: 11/17/16 09:09 Dose: 5 mg Aspirin (Ecotrin) 81 mg PO DAILY [facility] Last Admin: 11/17/16 09:09 Dose: 81 mg Bisacodyl (Dulcolax) 10 mg PO ONCE ONE Stop: 11/17/16 17:01 Furosemide (Lasix) 80 mg IVP Q12 [facility] Last Admin: 11/16/16 21:58 Dose: Not Given Piperacillin Sod/Tazobactam (Sod 3.375 gm/ Sodium Chloride) 100 mls @ 200 mls/ hr IVPB Q6H [facility] Last Admin: 11/17/16 09:09 Dose: 200 mls/hr Metronidazole (Flagyl) 100 mls @ 100 mls/hr IVPB Q8H [facility] Last Admin: 11/17/16 05:58 Dose: 100 mls/hr Metoclopramide HCl (Reglan) 5 mg IVP ACHS [facility] Last Admin: 11/17/16 09:10 Dose: 5 mg Metoprolol Succinate (Toprol Xl) 100 mg PO DAILY [facility] Last Admin: 11/17/16 09:09 Dose: 100 mg Multivitamins (Hexavitamin) 1 tab PO DAILY [facility] Last Admin: 11/17/16 09:09 Dose: 1 tab Pantoprazole Sodium (Protonix Inj) 40 mg IVP DAILY [facility] Last Admin: 11/17/16 09:09 Dose: 40 mg Rosuvastatin Calcium (Crestor) 20 mg PO HS [facility] Last Admin: 11/16/16 21:54 Dose: 20 mg Spironolactone (Aldactone) 25 mg PO BID [facility] Last Admin: 11/17/16 09:09 Dose: 25 mg Thiamine HCl (Vitamin B1 Tab) 100 mg PO DAILY [facility] Last Admin: 11/17/16 09:09 Dose: 100 mg - Labs Labs: 11/17/16 06:58 11/17/16 06:58 PT 15.6 SECONDS (9.7-12.2) H 11/14/16 21:43 INR 1.4 11/14/16 21:43 APTT 39 SECONDS (21-34) H 11/14/16 21:43 - Constitutional Appears: Non-toxic, No Acute Distress - Eye Exam Eye Exam: Normal appearance, PERRL, Scleral icterus - Respiratory Exam Respiratory Exam: Clear to Ausculation Bilateral, NORMAL BREATHING PATTERN. absent: Rhonchi, Wheezes - Cardiovascular Exam Cardiovascular Exam: REGULAR RHYTHM, +S1, +S2, Murmur - GI/Abdominal Exam GI & Abdominal Exam: Distended (worsening ), Soft, Normal Bowel Sounds. absent : Tenderness - Extremities Exam Extremities Exam: absent: Pedal Edema - Neurological Exam Neurological Exam: Alert, Awake, Oriented x3 - Psychiatric Exam Psychiatric exam: Normal Mood - Skin Skin Exam: Dry, Intact Assessment and Plan - Assessment and Plan (Free Text) Assessment: Rectal bleeding Colonoscopy and EGD on Friday. Flagyl 500mg IV q8H (11/15/16) Pt states one month of bloody BM, 6 episodes in last three days of bloody diarrhea Denies prior colonoscopy, EGD this month at [facility] Friday morning. Type and screen Stool Occult blood positive GI consulted- Julio César- rec for flagyl CEA positive. F/U C.diff Abdominal pain due to ETOH liver cirrhosis 11/17: Continue monitoring. 11/16: S/P paracentesis with 4.2L fluid removed. Spironolactone 25mg PO BID and Lasix 80mg IV q12H added. Abdomen grossly distended Diffuse pain for two months; Pt reports improved with paracentesis CT A/P: Cirrhosis with ascites; small bowel fold thickening consolidation vs edema; no CT findings of appendicitis or diverticulitis Pipercillin/Tazobactam 3.375mg IV Q6h AST: 155/ 46 from 176/52 Alk phos 230 from 287 T bili 3.3 from 3.1 Albumin 3.2 from 3.5 Lipase 100 UDS: negative, Alcohol < 10 Hepatitis panel neg HIV neg For IR paracentesis Cont home med: MV, thiamine CEA 20.3 AFP 5.8 CA 19-9 <1.4 Leukocytosis Afebrile, Tachycardic WBC: 21.4 from 23, with left shift Pipercillin/Tazobactam 3.375mg IV Q6h Blood culture negative x48 hours Hypokalemia k 2.9 Replaced K- 60 mEq Monitor Gout Hold home med: colchicine Hypertension Amlodipine 5mg PO daily Toprol 100 mg PO daily CAD ASA 81 mg Daily (hold) Lipitor 40mg PO daily Prophylaxis SCDs Contraindications to VTE - bleeding Protonix 40mg IV daily Dispo Started hepatic diet Cont current mgmt Reinforced ETOH abstinence importance DW attending (All mgmt as per Dr. Castillo)
--- NOTE | 2016-11-17 11:27 | PN ---
DATE: 11/17/2016 LOCATION: 569, bed A. This is a 56-year-old male seen and examined at rounds without reported significant changes or active bleeding, with persistent abdominal pain and recent change of bowel movement habit. The entire gretta t is reviewed, including but not limited to the most recent lab and radiology study results, current and previous medication list, current and the previous medical events. Case was discussed with the s colton and the patient is still having intermittent period of active bleeding. Today's lab showed white blood cells of 17.6 with low hemoglobin 11.4, low hematocrit 34.3, but with normal platelet count. With low potassium of 2.9 and low calcium 7.3 with total bilirubin subsequent ly dropped to 2.6, still elevated. AST is still high 104 with normal ALT and low albumin 2.6 and low total protein 6.0. PHYSICAL EXAMINATION: GENERAL: A 56-year-old male, awake, alert, oriented, complaining of some crampy abdominal pain and r ectal bleeding on and off. VITAL SIGNS: Afebrile with pulse of 86, respiratory rate 20-22, blood pressure 108/72. HEENT: Showed pale, dry oral mucoid membrane. Nonicteric sclerae. LUNGS: Few scattered crepitation, decreased air entry at bases. HEART: Positive S1 and S2. ABDOMEN: Soft with small amount of ascites and generalized tenderness. No mass or organomegaly, no rebound tenderness or guarding. RECTAL: Positive, trace of fresh and old blood. EXTREMITIES: Lower extremities, mild edematous changes. NEUROLOGIC: No new reported neurological deficits, sensory or motor. IMPRESSION: 1. Alcoholism with alcoholic liver disease. 2. Abnormal liver function tests secondary to above. 3. Jaundice, most likely secondary to hepatocellular injury due to alcoholism; however, the possibil ity of obstructive jaundice. He agreed to be ruled in or out. 4. Rectal bleeding of unclear etiology, to rule out occult gastrointestinal malignancy. 5. Reexacerbation of peptic ulcer disease. 6. Electrolyte imbalance with hypokalemia for potassium supplement. 7. Known history of severe anxiety syndrome, osteomyelitis, gouty arthritis, hypertension and heath ry artery disease. SUGGESTION: 1. Continue current management. 2. Adequate preparation for colonoscopy at a.m. due to the patient recurrent rectal bleeding and his anemia. 3. Further evaluation to follow. Charmaine Angela MD cc: 14 TT: 11/17/2016 11:27:42 Confirmation # [id number] Dictation # [id number] an
[2016-11-17] MEDS ORDERED: Bisacodyl 5mg EC Tab PO ONE (17:00)
[2016-11-18] MEDS: Piperacillin/Tazobact 3.375 GM in Sodium Chloride 100 ML IVPB SCH ×3 (01:52→20:17)
[2016-11-18] MEDS: METRONIDAZOLE 500 MG/100 ML IVPB SCH ×2 (05:51→22:06)
--- NOTE | 2016-11-18 07:51 | CON ---
DATE: 11/15/[address] Charmaine Angela to Dr. Castillo. I was called for a GI consultation by the admitting MD. The patient is seen and fully examined on as requested by the admitting medical team. The entire chart is reviewed including, but not limited to, the most recent lab and radiology study results, current and previous medication lists, current and the previous medical events, allergy to medication list as well as all the available curr ent and the previous medical record. Case discussed at length with the admitting medical team as wel l as the staff on the floor. HISTORY OF PRESENT ILLNESS: This is a 56-year-old male who was admitted to the hospital with the [facility] n complaint of severe abdominal pain, postprandial abdominal distension, generalized weakness and mal aise with less oral intake associated with persistent nausea, dyspepsia, and diarrhea with intermitte nt periods of rectal bleeding. Due to his upper GI tract symptoms, apparently the patient had upper endoscopy recently in another in [place]; results are not available at this time. PAST MEDICAL HISTORY: Including, but not limited to: 1. Alcoholism. 2. Alcoholic liver disease. 3. Hypertension. 4. Peptic ulcer disease. 5. Osteoarthritis. 6. Severe anxiety syndrome. FAMILY HISTORY: Unknown. SOCIAL HISTORY: Positive for alcohol intake but no report of cigarette smoking recently. The patien t also used to use cocaine, quit about 10 years ago according to his statement. ALLERGIES TO MEDICATION: List reviewed. CURRENT MEDICATIONS: All medication lists prior and during this admission were reevaluated. LABORATORY DATA: After being admitted to the hospital, the patient was found to have leukocytosis of 23.0 with thrombocytopenia of 430 with mild increase of blood glucose level to ____. CAT scan of the abdomen and pelvis showed evidence of cirrhosis with ascites. PHYSICAL EXAMINATION: GENERAL: A 56-year-old male. VITAL SIGNS: Afebrile with pulse of 102, respiratory rate 20-22 with blood pressure 136/82. HEENT: Showed pale, dry oral mucoid membranes. Slightly icteric sclerae bilaterally. LYMPH NODES: No lymphadenitis or lymphadenopathy. LUNGS: A few scattered crepitations with decreased air entry at bases. HEART: Positive S1 and S2 with increased rate. ABDOMEN: Soft with diffuse generalized tenderness, positive for ascites. No mass or organomegaly. No rebound tenderness or guarding. RECTAL: Positive tone with traces of fresh and old blood and blood clot. EXTREMITIES: Lower extremities, mild edematous changes. No clubbing or cyanosis. NEUROLOGIC: No reported neurological deficit, sensory or motor. IMPRESSION: 1. Lower gastrointestinal blood loss. 2. Alcoholism with alcoholic liver disease. 3. Liver cirrhosis secondary to above. 4. Evidence of portal hypertension with ascites. 5. Peptic ulcer disease by history. 6. Known history of hypertension, osteoarthritis, severe anxiety syndrome. SUGGESTION: 1. Agree with your plan. 2. CAT scan guided abdominal paracentesis was for evaluation of the ascitic fluid. 3. Cancer markers including alpha fetoprotein as well as CEA level. 4. Endoscopic evaluation of the lower GI tract due to the patient's rectal bleeding and diarrhea whe n he is more stable clinically. 5. Complete stool analysis. 6. Proton pump inhibitors IV. 7. Flagyl IV. 8. Further recommendations to follow. Thank you for letting me participate in your patient's case management. Charmaine Angela MD cc: 14 TT: 11/18/2016 07:50:58 Confirmation # [id number] Dictation # [id number] mn
[2016-11-18 08:13] LABS: BASO # 0.1 K/uL (0.0-0.2); BASO % 0.4 % (0.0-2.0); EOS # 0.3 K/uL (0.0-0.7); EOS % 1.5 % (0.0-4.0); HEMATOCRIT 37.7 % (35.0-51.0); LYMPH # 1.1 K/uL (1.0-4.3); MEAN CELL VOLUME 91.5 fL (80.0-94.0); MEAN CORPUSCULAR HEMOGLOBIN 30.2 pg (27.0-31.0); MONO # 1.7 K/uL (0.0-0.8); MONO % 9.1 % (0.0-10.0); PLATELET COUNT 273 K/uL (130-400); RED CELL DISTRIBUTION WIDTH 17.9 % (11.5-14.5); WHITE BLOOD COUNT 18.1 K/uL (4.8-10.8)
[2016-11-18 08:22] LABS: CHLORIDE 94 mmol/L (98-107)
[2016-11-18 08:23] LABS: POTASSIUM 3.1 mmol/L (3.6-5.2); SODIUM 135 mmol/L (132-148)
[2016-11-18 08:25] LABS: GFR AFRICAN-AMERICAN > 60
[2016-11-18 08:26] LABS: ALB/GLOB RATIO 0.8 (1.0-2.1); ALKALINE PHOSPHATASE 191 U/L (38-126); ALT/SGPT 38 U/L (21-72); AST/SGOT 134 U/L (17-59); BILIRUBIN,TOTAL 2.7 mg/dL (0.2-1.3); BLOOD UREA NITROGEN 8 mg/dL (9-20); CARBON DIOXIDE 25 mmol/L (22-30); GLUCOSE,RANDOM 88 mg/dL (75-110); PHOSPHOROUS 3.6 mg/dL (2.5-4.5); TOTAL PROTEIN 7.2 g/dL (6.3-8.3)
[2016-11-18 08:27] LABS: CALCIUM 7.8 mg/dl (8.6-10.4); MAGNESIUM 1.3 mg/dL (1.6-2.3)
[2016-11-18 09:10] LABS: EOSINOPHIL 2 % (0-4); NEUTROPHIL 90 % (50-75); TOTAL CELLS COUNTED 100
[2016-11-18] MEDS: Potassium Chloride 20 mEq ER Tab PO SCH (09:47)
[2016-11-18] MEDS: Multiple Vitamins Tab PO SCH (09:47)
[2016-11-18] MEDS: Metoprolol Succinate 100 mg XL Tab PO SCH (09:49)
--- NOTE | 2016-11-18 11:17 | CP.PCM.PN ---
<Robles Wise - Last Filed: 11/18/16 11:08> Subjective - Date & Time of Evaluation Date of Evaluation: 11/18/16 Time of Evaluation: 11:08 - Subjective Subjective: PGY-[address] Castillo service Pt seen and examined at bedside. He still have some loose BM's but he had golytely yesterday. No more blood in BM. Has some mild pain at paracentesis site. No other complaints. Denies fevers, chills, chest pain, sob, nausea or vomiting. Objective - Vital Signs/Intake and Output Vital Signs (last 24 hours): Temp Pulse Resp BP Pulse Ox 99.0 F 101 H 20 133/81 96 11/18/16 00:05 11/18/16 00:05 11/18/16 00:05 11/18/16 10:57 11/18/16 00:05 Intake and Output: 11/18/16 11/18/16 06:59 18:59 Intake Total 200 Balance 200 - Medications Medications: Current Medications Amlodipine Besylate (Norvasc) 5 mg PO DAILY [facility] Last Admin: 11/18/16 09:48 Dose: Not Given Aspirin (Ecotrin) 81 mg PO DAILY [facility] Last Admin: 11/18/16 09:47 Dose: Not Given Furosemide (Lasix) 40 mg IVP Q12 [facility] Last Admin: 11/18/16 10:57 Dose: 40 mg Piperacillin Sod/Tazobactam (Sod 3.375 gm/ Sodium Chloride) 100 mls @ 200 mls/ hr IVPB Q6H [facility] Last Admin: 11/18/16 08:52 Dose: 200 mls/hr Metronidazole (Flagyl) 100 mls @ 100 mls/hr IVPB Q8H [facility] Last Admin: 11/18/16 05:51 Dose: 100 mls/hr Metoclopramide HCl (Reglan) 5 mg IVP ACHS [facility] Last Admin: 11/18/16 10:55 Dose: 5 mg Metoprolol Succinate (Toprol Xl) 100 mg PO DAILY [facility] Last Admin: 11/18/16 09:49 Dose: Not Given Multivitamins (Hexavitamin) 1 tab PO DAILY [facility] Last Admin: 11/18/16 09:47 Dose: Not Given Pantoprazole Sodium (Protonix Inj) 40 mg IVP DAILY [facility] Last Admin: 11/18/16 10:54 Dose: 40 mg Potassium Chloride (K-Dur 20 Meq Er Tab) 40 meq PO DAILY [facility] Last Admin: 11/18/16 09:47 Dose: Not Given Rosuvastatin Calcium (Crestor) 20 mg PO HS [facility] Last Admin: 11/17/16 21:38 Dose: 20 mg Spironolactone (Aldactone) 25 mg PO BID [facility] Last Admin: 11/18/16 09:47 Dose: Not Given Thiamine HCl (Vitamin B1 Tab) 100 mg PO DAILY [facility] Last Admin: 11/18/16 09:49 Dose: Not Given - Labs Labs: 11/18/16 08:02 11/18/16 08:02 PT 15.6 SECONDS (9.7-12.2) H 11/14/16 21:43 INR 1.4 11/14/16 21:43 APTT 39 SECONDS (21-34) H 11/14/16 21:43 - Constitutional Appears: Non-toxic, No Acute Distress, Chronically Ill - Head Exam Head Exam: ATRAUMATIC, NORMOCEPHALIC - Eye Exam Eye Exam: Normal appearance - ENT Exam ENT Exam: Mucous Membranes Moist - Respiratory Exam Respiratory Exam: Clear to Ausculation Bilateral, NORMAL BREATHING PATTERN - Cardiovascular Exam Cardiovascular Exam: +S1, +S2 - GI/Abdominal Exam GI & Abdominal Exam: Soft, Tenderness (Mild tenderness, obvious ascites), Normal Bowel Sounds - Neurological Exam Neurological Exam: Alert, Awake - Skin Skin Exam: Dry, Warm Assessment and Plan - Assessment and Plan (Free Text) Assessment: Rectal bleeding - Colonoscopy and EGD today, NPO since midnight (11/18) - Flagyl 500mg IV q8H (11/15/16) - Pt states one month of bloody BM - Denies prior colonoscopy, EGD this month at [place] - Type and screen - Stool Occult blood positive - GI consulted- Julio César- rec for flagyl - CEA positive. Abdominal pain due to ETOH liver cirrhosis - s/p paracentesis - 11/17: Continue monitoring. - 11/16: S/P paracentesis with 4.2L fluid removed. Spironolactone 25mg PO BID and Lasix 80mg IV q12H added. - Abdomen grossly distended - Diffuse pain for two months; Pt reports improved with paracentesis - CT A/P: Cirrhosis with ascites; small bowel fold thickening consolidation vs edema; no CT findings of appendicitis or diverticulitis - Pipercillin/Tazobactam 3.375mg IV Q6h - Hepatitis panel neg - HIV neg - Cont home med: MV, thiamine - CEA 20.3 - AFP 5.8 - CA 19-9 <1.4 Leukocytosis - Afebrile, Tachycardic - Pipercillin/Tazobactam 3.375mg IV Q6h - Blood culture no growth after 3 days Hypokalemia - Monitor and replace as needed - KDur 40meq daily Gout - Hold home med: colchicine Hypertension - Amlodipine 5mg PO daily - Toprol 100 mg PO daily CAD - ASA 81 mg Daily (hold) - Lipitor 40mg PO daily Prophylaxis - SCDs - Contraindications to VTE - bleeding - Protonix 40mg IV daily Dispo - Started hepatic diet - Cont current mgmt - Reinforced ETOH abstinence importance - Possible D/C tomorrow depending on colonoscopy DW attending (All mgmt as per Dr. Castillo) <Marin Castillo Jr. - Last Filed: 11/20/16 16:20> Objective - Vital Signs/Intake and Output Vital Signs (last 24 hours): Temp Pulse Resp BP Pulse Ox 98.8 F 103 H 20 143/88 96 11/20/16 14:15 11/20/16 14:15 11/20/16 14:15 11/20/16 14:58 11/20/16 14:15 Intake and Output: 11/20/16 11/20/16 06:59 18:59 Intake Total 300 75 Output Total 100 Balance 200 75 - Medications Medications: Current Medications Amlodipine Besylate (Norvasc) 5 mg PO DAILY [facility] Last Admin: 11/20/16 14:55 Dose: 5 mg Aspirin (Ecotrin) 81 mg PO DAILY [facility] Last Admin: 11/20/16 14:55 Dose: 81 mg Furosemide (Lasix) 40 mg IVP Q12 [facility] Last Admin: 11/20/16 14:58 Dose: 40 mg Piperacillin Sod/Tazobactam (Sod 3.375 gm/ Sodium Chloride) 100 mls @ 200 mls/ hr IVPB Q6H [facility] Last Admin: 11/20/16 14:56 Dose: 200 mls/hr Metronidazole (Flagyl) 100 mls @ 100 mls/hr IVPB Q8H [facility] Last Admin: 11/20/16 14:55 Dose: 100 mls/hr Metoprolol Succinate (Toprol Xl) 100 mg PO DAILY [facility] Last Admin: 11/20/16 14:55 Dose: 100 mg Morphine Sulfate (Morphine) 2 mg IVP Q4 PRN PRN Reason: Pain, severe (8-10) Last Admin: 11/20/16 00:20 Dose: 2 mg Multivitamins (Hexavitamin) 1 tab PO DAILY [facility] Last Admin: 11/20/16 14:55 Dose: 1 tab Pantoprazole Sodium (Protonix Inj) 40 mg IVP DAILY [facility] Last Admin: 11/20/16 14:55 Dose: 40 mg Potassium Chloride (K-Dur 20 Meq Er Tab) 40 meq PO DAILY [facility] Last Admin: 11/20/16 14:55 Dose: 40 meq Rosuvastatin Calcium (Crestor) 20 mg PO HS [facility] Last Admin: 11/19/16 21:37 Dose: 20 mg Spironolactone (Aldactone) 25 mg PO BID [facility] Last Admin: 11/20/16 14:55 Dose: 25 mg Sucralfate (Carafate Oral Susp) 1 gm PO ACBD [facility] Thiamine HCl (Vitamin B1 Tab) 100 mg PO DAILY [facility] Last Admin: 11/20/16 14:55 Dose: 100 mg - Labs Labs: 11/20/16 08:06 11/20/16 08:06 PT 19.6 SECONDS (9.7-12.2) H 11/20/16 08:06 INR 1.7 11/20/16 08:06 APTT 40 SECONDS (21-34) H 11/20/16 08:06 Attending/Attestation - Attestation I have personally seen and examined this patient.: Yes I have fully participated in the care of the patient.: Yes I have reviewed all pertinent clinical information, including history, physical exam and plan: Yes Notes (Text): 11/20/16 16:20 Patient seen and examined with resident. Reviewed resident note and plan of care. Agree with findings and plan of care discussed
[2016-11-18] MEDS ORDERED: Propofol 10 mg/ml Inj (20 ML) ONE ×2 (12:46→12:59)
[2016-11-18] MEDS ORDERED: Lactated Ringer's 500 ML IV ONE ×2 (12:48)
[2016-11-18] MEDS ORDERED: Phytonadione 10 mg/ml Inj (Adult) SC STA (13:03)
[2016-11-18] MEDS: Lactated Ringer's 1,000 ML IV SCH (18:02)
[2016-11-19] MEDS: Piperacillin/Tazobact 3.375 GM in Sodium Chloride 100 ML IVPB SCH ×4 (02:40→20:08)
[2016-11-19] MEDS: METRONIDAZOLE 500 MG/100 ML IVPB SCH ×4 (05:50→21:37)
[2016-11-19] MEDS: Lactated Ringer's 1,000 ML IV SCH (07:35)
[2016-11-19] MEDS ORDERED: Potassium Chloride 20 mEq 100 ML IVPB ONE (09:57)
[2016-11-19] MEDS: Potassium Chloride 20 mEq ER Tab PO SCH (10:40)
[2016-11-19] MEDS: Multiple Vitamins Tab PO SCH (10:41)
[2016-11-19] MEDS: Metoprolol Succinate 100 mg XL Tab PO SCH (10:41)
[2016-11-19] MEDS ORDERED: Phytonadione 10 mg/ml Inj (Adult) SC STA (11:14)
[2016-11-19 11:45] LABS: BASO % 0.3 % (0.0-2.0); EOS # 0.3 K/uL (0.0-0.7); EOS % 1.9 % (0.0-4.0); HEMATOCRIT 35.5 % (35.0-51.0); LYMPH # 0.7 K/uL (1.0-4.3); LYMPH % 4.2 % (20.0-40.0); MEAN CELL VOLUME 91.6 fL (80.0-94.0); MEAN CORPUSCULAR HEMOGLOBIN 30.5 pg (27.0-31.0); MEAN CORPUSCULAR HGB CONC 33.3 g/dL (33.0-37.0); MEAN PLATELET VOLUME 11.3 fL (7.2-11.7); MONO # 1.3 K/uL (0.0-0.8); MONO % 7.6 % (0.0-10.0); PLATELET COUNT 262 K/uL (130-400); RED CELL DISTRIBUTION WIDTH 18.1 % (11.5-14.5); WHITE BLOOD COUNT 17.4 K/uL (4.8-10.8)
[2016-11-19 11:48] LABS: INR 1.7
[2016-11-19 11:49] LABS: CHLORIDE 94 mmol/L (98-107); SODIUM 134 mmol/L (132-148)
[2016-11-19 11:52] LABS: ALB/GLOB RATIO 0.7 (1.0-2.1); ALKALINE PHOSPHATASE 160 U/L (38-126); ALT/SGPT 41 U/L (21-72); AST/SGOT 115 U/L (17-59); BILIRUBIN,TOTAL 2.1 mg/dL (0.2-1.3); BLOOD UREA NITROGEN 8 mg/dL (9-20); CALCIUM 7.6 mg/dl (8.6-10.4); CARBON DIOXIDE 27 mmol/L (22-30); GFR AFRICAN-AMERICAN > 60; GLUCOSE,RANDOM 141 mg/dL (75-110); TOTAL PROTEIN 6.9 g/dL (6.3-8.3)
--- NOTE | 2016-11-19 12:10 | PN ---
DATE: 11/19/2016 LOCATION: 569, bed A. This is a 56-year-old male seen and examined at rounds with intermittent periods of abdominal pain wi th mild abdominal distention. No reported chest pain or palpitation, but dyspepsia with nausea on an d off. The entire chart is reviewed including, but not limited to, the most recent lab and radiology study results, current and previous medication lists, current and the previous medical events, and t he patient still has low potassium with increased total bilirubin as well as increased AST and alkali ne phosphatase, but low albumin. PHYSICAL EXAMINATION: GENERAL: A 56-year-old male, appears to be somewhat more awake and alert. VITAL SIGNS: Afebrile with pulse of 100, respiratory rate 20-22, blood pressure 116/70. HEENT: Showed mildly pale, dry oral mucoid membrane, bilateral icteric sclerae. LUNGS: Few scattered crepitation, decreased air entry at bases. HEART: Positive S1 and S2 with increased rate. ABDOMEN: Soft. Bowel sounds are present with mild distention, positive for ascites. EXTREMITIES: Lower extremities, mild edematous changes. No clubbing or cyanosis. NEUROLOGIC: No new reported neurological deficits, sensory or motor. IMPRESSION: 1. Anemia, to rule out upper gastrointestinal tract blood loss. 2. Alcoholic liver disease. 3. Abnormal liver function tests secondary to above. 4. Jaundice with elevated total bilirubin most likely secondary to above. 5. Electrolyte imbalance with hypokalemia and hypocalcemia. 6. Severe anxiety syndrome, osteoarthritis, and gouty arthritis as well as hypertension and coronary artery disease by history. SUGGESTION: 1. Continue current management. 2. Upper endoscopy to rule out possible esophageal varices with blood loss. 3. Correct underlying coagulopathy. 4. Correct any underlying electrolyte imbalance. Charmaine Angela MD cc: 14 TT: 11/19/2016 12:09:38 Confirmation # [id number] Dictation # [id number] mn
[2016-11-19 12:12] LABS: EOSINOPHIL 1 % (0-4); TOTAL CELLS COUNTED 100
[2016-11-19 12:13] LABS: NEUTROPHIL 89 % (50-75)
[2016-11-19 12:14] LABS: LARGE PLATELETS PRESENT
--- NOTE | 2016-11-19 14:28 | CP.PCM.PN ---
Subjective - Date & Time of Evaluation Date of Evaluation: 11/19/16 Time of Evaluation: 14:25 - Subjective Subjective: PGY-[address] Castillo's service Pt seen and examined at bedside. Pt upset this morning about pain control and the delay of his EGD. Pt expresses that he wishes to go home. The pain he states is located over the paracentesis site. Denies any fevers, chills, chest pain, sob, nausea or vomiting. He states his abdomen feels full but no worse than yesterday. Objective - Vital Signs/Intake and Output Vital Signs (last 24 hours): Temp Pulse Resp BP Pulse Ox 98.4 F 104 H 18 111/72 95 11/19/16 07:00 11/19/16 07:00 11/19/16 07:00 11/19/16 10:43 11/19/16 07:00 Intake and Output: 11/19/16 11/19/16 06:59 18:59 Intake Total 950 Output Total 700 Balance 250 - Medications Medications: Current Medications Amlodipine Besylate (Norvasc) 5 mg PO DAILY [facility] Last Admin: 11/19/16 10:41 Dose: 5 mg Aspirin (Ecotrin) 81 mg PO DAILY [facility] Last Admin: 11/19/16 10:41 Dose: 81 mg Furosemide (Lasix) 40 mg IVP Q12 [facility] Last Admin: 11/19/16 10:43 Dose: 40 mg Piperacillin Sod/Tazobactam (Sod 3.375 gm/ Sodium Chloride) 100 mls @ 200 mls/ hr IVPB Q6H [facility] Last Admin: 11/19/16 08:52 Dose: 200 mls/hr Metronidazole (Flagyl) 100 mls @ 100 mls/hr IVPB Q8H [facility] Last Admin: 11/19/16 13:29 Dose: 100 mls/hr Metoclopramide HCl (Reglan) 5 mg IVP ACHS [facility] Last Admin: 11/19/16 12:30 Dose: Not Given Metoprolol Succinate (Toprol Xl) 100 mg PO DAILY [facility] Last Admin: 11/19/16 10:41 Dose: 100 mg Morphine Sulfate (Morphine) 2 mg IVP Q4 PRN PRN Reason: Pain, severe (8-10) Last Admin: 11/19/16 10:40 Dose: 2 mg Multivitamins (Hexavitamin) 1 tab PO DAILY [facility] Last Admin: 11/19/16 10:41 Dose: 1 tab Pantoprazole Sodium (Protonix Inj) 40 mg IVP DAILY [facility] Last Admin: 11/19/16 10:41 Dose: 40 mg Potassium Chloride (K-Dur 20 Meq Er Tab) 40 meq PO DAILY [facility] Last Admin: 11/19/16 10:40 Dose: 40 meq Rosuvastatin Calcium (Crestor) 20 mg PO HS [facility] Last Admin: 11/18/16 22:07 Dose: 20 mg Spironolactone (Aldactone) 25 mg PO BID [facility] Last Admin: 11/19/16 10:41 Dose: 25 mg Thiamine HCl (Vitamin B1 Tab) 100 mg PO DAILY [facility] Last Admin: 11/19/16 10:41 Dose: 100 mg - Labs Labs: 11/19/16 11:31 11/19/16 11:31 PT 19.2 SECONDS (9.7-12.2) H 11/19/16 11:31 INR 1.7 11/19/16 11:31 APTT 40 SECONDS (21-34) H 11/19/16 11:31 - Constitutional Appears: Non-toxic, In Acute Distress - Head Exam Head Exam: ATRAUMATIC, NORMOCEPHALIC - ENT Exam ENT Exam: Mucous Membranes Moist - Respiratory Exam Respiratory Exam: Clear to Ausculation Bilateral, NORMAL BREATHING PATTERN - Cardiovascular Exam Cardiovascular Exam: +S1, +S2 - GI/Abdominal Exam GI & Abdominal Exam: Soft, Normal Bowel Sounds Additional comments: ascites. Paracentesis site is clean, without significant erythema, no drainage. - Neurological Exam Neurological Exam: Alert, Awake - Skin Skin Exam: Dry, Warm Assessment and Plan - Assessment and Plan (Free Text) Assessment: Rectal bleeding - Colonoscopy (11/18) - 15mm sessile polyp that was resected with congested mucosa in the sigmoid and desc colon, moderate colonic spasm, moderate diverticulosis w/ no bleeding, and int and ext nonbleeding hemorrhoids. - EGD delayed - f/u with GI - Flagyl 500mg IV q8H (11/15/16) - Pt states one month of bloody BM - Denies prior colonoscopy, EGD this month at [place] - Type and screen - Stool Occult blood positive - GI consulted- Julio César- rec for flagyl - CEA positive. Abdominal pain due to ETOH liver cirrhosis - s/p paracentesis - 11/17: Continue monitoring. - 11/16: S/P paracentesis with 4.2L fluid removed. Spironolactone 25mg PO BID and Lasix 80mg IV q12H added. - Abdomen grossly distended - Diffuse pain for two months; Pt reports improved with paracentesis - CT A/P: Cirrhosis with ascites; small bowel fold thickening consolidation vs edema; no CT findings of appendicitis or diverticulitis - Pipercillin/Tazobactam 3.375mg IV Q6h - Hepatitis panel neg - HIV neg - Cont home med: MV, thiamine - CEA 20.3 - AFP 5.8 - CA 19-9 <1.4 - Morphine 2mg PRN Leukocytosis - Afebrile, Tachycardic - Pipercillin/Tazobactam 3.375mg IV Q6h - Blood culture no growth after 3 days Hypokalemia - Monitor and replace as needed - KDur 40meq daily Gout - Hold home med: colchicine Hypertension - Amlodipine 5mg PO daily - Toprol 100 mg PO daily CAD - ASA 81 mg Daily (hold) - Lipitor 40mg PO daily Prophylaxis - SCDs - Contraindications to VTE - bleeding - Protonix 40mg IV daily Dispo - Started hepatic diet - Cont current mgmt - Reinforced ETOH abstinence importance - Possible D/C tomorrow depending on colonoscopy DW attending (All mgmt as per Dr. Castillo)
[2016-11-20] MEDS: Piperacillin/Tazobact 3.375 GM in Sodium Chloride 100 ML IVPB SCH ×3 (01:41→14:56)
[2016-11-20] MEDS: METRONIDAZOLE 500 MG/100 ML IVPB SCH ×2 (05:34→14:55)
[2016-11-20 08:13] LABS: BASO # 0.1 K/uL (0.0-0.2); BASO % 0.4 % (0.0-2.0); EOS # 0.3 K/uL (0.0-0.7); EOS % 1.9 % (0.0-4.0); HEMATOCRIT 35.9 % (35.0-51.0); LYMPH # 0.9 K/uL (1.0-4.3); LYMPH % 5.3 % (20.0-40.0); MEAN CELL VOLUME 91.9 fL (80.0-94.0); MEAN CORPUSCULAR HEMOGLOBIN 29.8 pg (27.0-31.0); MEAN CORPUSCULAR HGB CONC 32.5 g/dL (33.0-37.0); MEAN PLATELET VOLUME 10.9 fL (7.2-11.7); MONO # 1.5 K/uL (0.0-0.8); MONO % 9.1 % (0.0-10.0); PLATELET COUNT 232 K/uL (130-400); WHITE BLOOD COUNT 16.4 K/uL (4.8-10.8)
[2016-11-20 08:20] LABS: INR 1.7
[2016-11-20 08:27] LABS: CHLORIDE 93 mmol/L (98-107); POTASSIUM 3.2 mmol/L (3.6-5.2); SODIUM 135 mmol/L (132-148)
[2016-11-20 08:29] LABS: ALB/GLOB RATIO 0.7 (1.0-2.1); ALKALINE PHOSPHATASE 158 U/L (38-126); AST/SGOT 99 U/L (17-59); BILIRUBIN,TOTAL 1.7 mg/dL (0.2-1.3); BLOOD UREA NITROGEN 6 mg/dL (9-20); CARBON DIOXIDE 30 mmol/L (22-30); GFR AFRICAN-AMERICAN > 60; TOTAL PROTEIN 6.7 g/dL (6.3-8.3)
[2016-11-20 08:30] LABS: ALT/SGPT 30 U/L (21-72); CALCIUM 7.6 mg/dl (8.6-10.4); GLUCOSE,RANDOM 88 mg/dL (75-110); MAGNESIUM 1.4 mg/dL (1.6-2.3); PHOSPHOROUS 3.1 mg/dL (2.5-4.5)
[2016-11-20 09:15] LABS: BASOPHIL 1 % (0-2); EOSINOPHIL 1 % (0-4); NEUTROPHIL 88 % (50-75); TOTAL CELLS COUNTED 100
[2016-11-20 09:17] LABS: GIANT PLATELETS PRESENT; LARGE PLATELETS PRESENT
[2016-11-20] MEDS ORDERED: Propofol 10 mg/ml Inj (20 ML) ONE (13:08)
[2016-11-20] MEDS ORDERED: Phytonadione 10 mg/ml Inj (Adult) SC ONE (13:24)
[2016-11-20 14:18] VITALS: RESP 20; O2SAT 96
[2016-11-20] MEDS: Metoprolol Succinate 100 mg XL Tab PO SCH (14:55)
[2016-11-20] MEDS: Multiple Vitamins Tab PO SCH (14:55)
[2016-11-20] MEDS: Potassium Chloride 20 mEq ER Tab PO SCH (14:55)
[2016-11-20] MEDS ORDERED: Sucralfate 1 gm/10 ml Oral Susp UD PO SCH (16:30)
[2016-11-20 16:43] VITALS: BP 107/71; PULSE 89; TEMP 98.7
--- NOTE | 2016-11-20 20:03 | CP.PCM.DIS ---
Provider - Provider Date of Admission: 11/15/16 05:37 Attending physician: Marin Castillo Jr, MD Primary care physician: Anna Consults: DILLON Angela Time Spent in preparation of Discharge (in minutes): 31 Hospital Course - Lab Results Lab Results: Most Recent Lab Values WBC 16.4 K/uL (4.8-10.8) H 11/20/16 08:06 RBC 3.91 Mil/uL (4.40-5.90) L 11/20/16 08:06 Hgb 11.7 g/dL (12.0-18.0) L 11/20/16 08:06 Hct 35.9 % (35.0-51.0) 11/20/16 08:06 MCV 91.9 fL (80.0-94.0) 11/20/16 08:06 MCH 29.8 pg (27.0-31.0) 11/20/16 08:06 MCHC 32.5 g/dL (33.0-37.0) L 11/20/16 08:06 RDW 18.0 % (11.5-14.5) H 11/20/16 08:06 Plt Count 232 K/uL (130-400) 11/20/16 08:06 MPV 10.9 fL (7.2-11.7) 11/20/16 08:06 Neut % (Auto) 83.3 % (50.0-75.0) H 11/20/16 08:06 Lymph % (Auto) 5.3 % (20.0-40.0) L 11/20/16 08:06 Valencia % (Auto) 9.1 % (0.0-10.0) 11/20/16 08:06 Eos % (Auto) 1.9 % (0.0-4.0) 11/20/16 08:06 Baso % (Auto) 0.4 % (0.0-2.0) 11/20/16 08:06 Neut # 13.7 K/uL (1.8-7.0) H 11/20/16 08:06 Lymph # 0.9 K/uL (1.0-4.3) L 11/20/16 08:06 Valencia # 1.5 K/uL (0.0-0.8) H 11/20/16 08:06 Eos # 0.3 K/uL (0.0-0.7) 11/20/16 08:06 Baso # 0.1 K/uL (0.0-0.2) 11/20/16 08:06 Neutrophils % (Manual) 88 % (50-75) H 11/20/16 08:06 Band Neutrophils % 2 % (0-2) 11/17/16 06:58 Lymphocytes % (Manual) 5 % (20-40) L 11/20/16 08:06 Monocytes % (Manual) 5 % (0-10) 11/20/16 08:06 Eosinophils % (Manual) 1 % (0-4) 11/20/16 08:06 Basophils % (Manual) 1 % (0-2) 11/20/16 08:06 Toxic Granulation Present 11/17/16 06:58 Platelet Estimate Normal (NORMAL) 11/20/16 08:06 Large Platelets Present 11/20/16 08:06 Giant Platelets Present 11/20/16 08:06 Polychromasia Slight 11/20/16 08:06 Hypochromasia (manual) Slight 11/20/16 08:06 Poikilocytosis (manual Slight 11/20/16 08:06 Anisocytosis (manual) Slight 11/20/16 08:06 Microcytosis (manual) Slight 11/14/16 21:43 Macrocytosis (manual) Slight 11/16/16 11:16 Target Cells Slight 11/20/16 08:06 Tear Drop Cells Slight 11/18/16 08:02 PT 19.6 SECONDS (9.7-12.2) H 11/20/16 08:06 INR 1.7 11/20/16 08:06 APTT 40 SECONDS (21-34) H 11/20/16 08:06 Sodium 135 mmol/L (132-148) 11/20/16 08:06 Potassium 3.2 mmol/L (3.6-5.2) L 11/20/16 08:06 Chloride 93 mmol/L (98-107) L 11/20/16 08:06 Carbon Dioxide 30 mmol/L (22-30) 11/20/16 08:06 Anion Gap 15 (10-20) 11/20/16 08:06 BUN 6 mg/dL (9-20) L 11/20/16 08:06 Creatinine 1.0 MG/DL (0.8-1.5) 11/20/16 08:06 Est GFR ( Amer) > 60 11/20/16 08:06 Est GFR (Non-Af Amer) > 60 11/20/16 08:06 Random Glucose 88 mg/dL (75-110) 11/20/16 08:06 Calcium 7.6 mg/dl (8.6-10.4) L 11/20/16 08:06 Phosphorus 3.1 mg/dL (2.5-4.5) 11/20/16 08:06 Magnesium 1.4 mg/dL (1.6-2.3) L 11/20/16 08:06 Total Bilirubin 1.7 mg/dL (0.2-1.3) H 11/20/16 08:06 AST 99 U/L (17-59) H 11/20/16 08:06 ALT 30 U/L (21-72) 11/20/16 08:06 Alkaline Phosphatase 158 U/L (38-126) H 11/20/16 08:06 Total Protein 6.7 g/dL (6.3-8.3) 11/20/16 08:06 Albumin 2.8 g/dL (3.5-5.0) L 11/20/16 08:06 Globulin 3.9 gm/dL (2.2-3.9) 11/20/16 08:06 Albumin/Globulin Ratio 0.7 (1.0-2.1) L 11/20/16 08:06 Lipase 100 U/L (23-300) 11/14/16 21:43 Alpha Fetoprotein 5.8 ng/mL (0.0-7.5) 11/15/16 14:17 Carcinoembryonic Ag 20.3 ng/mL (0-3.0) H 11/15/16 14:17 CA 19-9 Antigen < 1.4 U/mL (0-37) 11/15/16 14:17 Urine Color Linda (YELLOW) 11/15/16 01:32 Urine Clarity Hazy (Clear) 11/15/16 01:32 Urine pH 5.0 (5.0-8.0) 11/15/16 01:32 Ur Specific [place] Path 1.014 (1.003-1.030) 11/15/16 01:32 Urine Protein 1+ mg/dL (NEGATIVE) H 11/15/16 01:32 Urine Glucose (UA) Normal mg/dL (Normal) 11/15/16 01:32 Urine Ketones Negative mg/dL (NEGATIVE) 11/15/16 01:32 Urine Blood Negative (NEGATIVE) 11/15/16 01:32 Urine Nitrate Negative (NEGATIVE) 11/15/16 01:32 Urine Bilirubin Negative (NEGATIVE) 11/15/16 01:32 Urine Urobilinogen Normal mg/dL (0.2-1.0) 11/15/16 01:32 Ur Leukocyte Esterase Neg Jamie/uL (Negative) 11/15/16 01:32 Urine WBC (Auto) 26 /hpf (0-5) H 11/15/16 01:32 Urine RBC (Auto) 4 /hpf (0-3) H 11/15/16 01:32 Ur Squamous Epith Cells 2 /hpf (0-5) 11/15/16 01:32 Urine Bacteria Rare (<OCC) 11/15/16 01:32 Hyaline Casts 11-20 /lpf (0-2) H 11/15/16 01:32 Granular Casts (Auto) 467 /lpf (0-1) 11/15/16 01:32 Stool Occult Blood Positive (NEGATIVE) H 11/14/16 21:33 Urine Opiates Screen Negative (NEGATIVE) 11/15/16 01:32 Urine Methadone Screen Negative (NEGATIVE) 11/15/16 01:32 Ur Barbiturates Screen Negative (NEGATIVE) 11/15/16 01:32 Ur Phencyclidine Scrn Negative (NEGATIVE) 11/15/16 01:32 Ur Amphetamines Screen Negative (NEGATIVE) 11/15/16 01:32 U Benzodiazepines Scrn Negative (NEGATIVE) 11/15/16 01:32 U Oth Cocaine Metabols Negative (NEGATIVE) 11/15/16 01:32 U Cannabinoids Screen Negative (NEGATIVE) 11/15/16 01:32 Alcohol, Quantitative < 10 mg/dl (0-10) 11/14/16 21:43 Hepatitis A IgM Ab Negative (NEGATIVE) 11/15/16 10:35 Hep Bs Antigen Negative (NEGATIVE) 11/15/16 10:35 Hep B Core IgM Ab Negative (NEGATIVE) 11/15/16 10:35 Hepatitis C Antibody Negative (NEGATIVE) 11/15/16 10:35 HIV 1&2 Antibody Screen Negative (NEGATIVE) 11/15/16 11:15 Blood Type O POSITIVE 11/15/16 10:35 Antibody Screen Negative 11/15/16 10:35 - Hospital Course Hospital Course: On hospital admission Patient is a 56 year old male, with PMHx of alcoholic cirrhosis, ascites, gout, CAD, hypertension, and hyperlipidemia, who presents to the emergency department with worsening abdominal pain and rectal bleeding. He reports the abdominal pain started "a couple of months ago," and over that time frame has occurred intermittently but has been getting worse in the past week. Patient reports distention from recurrent ascites has also gotten worse in the past week. Pt admits that ascites begin to effect his breathing at the beginning of the month , and had his first paracentesis at [facility]. He also admits bloody bowel movements that began "over a month ago," went away for two weeks, then returned. He reports the hematochezia started off as mark blood interwoven in the stool, but now he admits 6 episodes of bloody, watery diarrhea in the last three days. Pt also admits EGD at [facility] during same admission as paracentesis in the beginning of October, but left AMA and does not know the results. He denies previous colonoscopy. Pt denies chest pain, palpitations, headache, dizziness, hematemesis, hematuria, dysuria, fever, chills, or confusion. On hospital course The pt was admitted with rectal bleeding and abdominal pain secondary to ascites , secondary to alcoholic liver cirrhosis. A paracentesis was ordered and 4.2 liters of straw colored fluid was removed. GI was also consulted for the rectal bleeding. Pt underwent a colonoscopy and an EGD. The colonoscopy revealed one 5mm sessile polyp that was resected with congested mucosa in the sigmoid and descending colon, moderate colonic spasm, moderate diverticulosis w/ no bleeding , and int and ext nonbleeding hemorrhoids. The EGD revealed grade I esophageal varices, gastritis (biopsied) and erythematous duodenopathy. The pt clinically fel better and he had no more episodes of blood in his stool. Pt was discharged in stable condition with instructions to follow up with Dr Castillo and Dr Angela on the following medications: Spironolactone [Aldactone] 25 mg PO BID #60 tab Hydrocort/Pramoxin/Emol/Pram#1 [Analpram E 2.5% Cream Kit] 1 each RC BID #1 kt.crm.twl Ciprofloxacin HCl [Cipro] 500 mg PO BID #20 tab Colchicine [Colcrys] 0.6 mg PO DAILY #30 tablet Aspirin [Ecotrin] 81 mg PO DAILY #30 tabec Potassium Chloride [K-Dur 20 mEq ER Tab] 40 meq PO DAILY #30 tab Furosemide [Lasix] 40 mg PO Q12H #60 tablet Atorvastatin [Lipitor] 40 mg PO HS #30 tab amLODIPine [Norvasc] 5 mg PO DAILY #30 tab Pantoprazole [Protonix] 40 mg PO DAILY #30 ect Metoclopramide HCl [Reglan] 5 mg PO TID PRN #30 tablet PRN Reason: Nausea/Vomiting Thiamine [Vitamin B1 Tab] 100 mg PO DAILY #30 tab Diagnoses GI bleed/rectal bleed Alcoholic liver cirrhosis Coronary artery disease - Date & Time of H&P Date of H&P: 11/15/16 Time of H&P: 06:57 Discharge Exam - Head Exam Head Exam: ATRAUMATIC, NORMOCEPHALIC Discharge Plan - Discharge Medications Prescriptions: Spironolactone [Aldactone] 25 mg PO BID #60 tab Hydrocort/Pramoxin/Emol/Pram#1 [Analpram E 2.5% Cream Kit] 1 each RC BID #1 kt.crm.twl Ciprofloxacin HCl [Cipro] 500 mg PO BID #20 tab Colchicine [Colcrys] 0.6 mg PO DAILY #30 tablet Aspirin [Ecotrin] 81 mg PO DAILY #30 tabec Potassium Chloride [K-Dur 20 mEq ER Tab] 40 meq PO DAILY #30 tab Furosemide [Lasix] 40 mg PO Q12H #60 tablet Atorvastatin [Lipitor] 40 mg PO HS #30 tab amLODIPine [Norvasc] 5 mg PO DAILY #30 tab Pantoprazole [Protonix] 40 mg PO DAILY #30 ect Metoclopramide HCl [Reglan] 5 mg PO TID PRN #30 tablet PRN Reason: Nausea/Vomiting Thiamine [Vitamin B1 Tab] 100 mg PO DAILY #30 tab - Follow Up Plan Condition: GOOD Disposition: HOME/ ROUTINE Instructions: Abuse of Alcohol (DC), Ascites (DC) Additional Instructions: Pt is medically stable for discharge. Pt needs to take his medications as they are prescribed. Pt should follow up with Dr Castillo by the end of next week. Pt also needs to schedule an appointment with Dr Angela (GI) Referrals: Dev Angela [Staff Provider] - Marin Castillo Jr., MD [Medical Doctor] -
== END 2016-11-20 18:50 | disposition home or self-care (01) | DRG 433 ==
LOC: C.ER 19:35 → C.5T 11-15 05:37
PROVIDERS: ADMIT Internal Medicine; ATTEND Internal Medicine
PROC: 0W9G3ZZ Drainage of Peritoneal Cavity, Percutaneous Approach (ICD-10-PCS; principal; 2016-11-15)
PROC: BW40ZZZ Ultrasonography of Abdomen (ICD-10-PCS; 2016-11-15)
PROC: 0DBM8ZX Excision of Descending Colon, Via Natural or Artificial Opening Endoscopic, Diagnostic (ICD-10-PCS; 2016-11-18)
PROC: 0DB68ZX Excision of Stomach, Via Natural or Artificial Opening Endoscopic, Diagnostic (ICD-10-PCS; 2016-11-20)
DX: K70.31 Alcoholic cirrhosis of liver with ascites (principal); I85.10 Secondary esophageal varices without bleeding; E83.51 Hypocalcemia; K62.5 Hemorrhage of anus and rectum; F10.10 Alcohol abuse, uncomplicated; K29.00 Acute gastritis without bleeding; D72.829 Elevated white blood cell count, unspecified; K64.4 Residual hemorrhoidal skin tags; K64.8 Other hemorrhoids; K31.9 Disease of stomach and duodenum, unspecified; E87.6 Hypokalemia; I25.10 Atherosclerotic heart disease of native coronary artery without angina pectoris; I10 Essential (primary) hypertension; K58.9 Irritable bowel syndrome, unspecified; D64.9 Anemia, unspecified; M19.90 Unspecified osteoarthritis, unspecified site; M10.9 Gout, unspecified; F41.9 Anxiety disorder, unspecified; E78.5 Hyperlipidemia, unspecified

== ENCOUNTER 2016-11-27 23:36 | Emergency (ER) | payer BC ==
[2016-11-28 03:14] VITALS: BP 135/76; PULSE 86; RESP 18; TEMP 98.5; O2SAT 99
[2016-11-28 09:57] LABS: ALB/GLOB RATIO 0.8 (1.0-2.1); ALCOHOL SERUM 61 mg/dl (0-10); ALKALINE PHOSPHATASE 225 U/L (38-126); ALT/SGPT 40 U/L (21-72); AST/SGOT 134 U/L (17-59); BILIRUBIN,TOTAL 2.1 mg/dL (0.2-1.3); BLOOD UREA NITROGEN 11 mg/dL (9-20); CALCIUM 8.9 mg/dl (8.6-10.4); CARBON DIOXIDE 25 mmol/L (22-30); CHLORIDE 94 mmol/L (98-107); GFR AFRICAN-AMERICAN > 60; GLUCOSE,RANDOM 101 mg/dL (75-110); SODIUM 135 mmol/L (132-148); TOTAL PROTEIN 7.3 g/dL (6.3-8.3)
[2016-11-28 10:32] LABS: HEMATOCRIT 38.8 % (35.0-51.0); MEAN CORPUSCULAR HEMOGLOBIN 29.6 pg (27.0-31.0); MEAN CORPUSCULAR HGB CONC 32.2 g/dL (33.0-37.0); MEAN PLATELET VOLUME 11.1 fL (7.2-11.7); RED CELL DISTRIBUTION WIDTH 17.8 % (11.5-14.5); WHITE BLOOD COUNT 18.8 K/uL (4.8-10.8)
[2016-11-28 10:41] LABS: URINE BILIRUBIN NEGATIVE (NEGATIVE); URINE BLOOD NEGATIVE (NEGATIVE); URINE COLOR AMBER (YELLOW); URINE GLUCOSE (UA) NORMAL (Normal); URINE KETONE NEGATIVE (NEGATIVE); URINE PROTEIN 1+ mg/dL (NEGATIVE)
[2016-11-28 10:42] LABS: INR 1.4
[2016-11-28 10:42] LABS: RBC URINE 2 /hpf (0-3); URINE BACTERIA RARE (<OCC); URINE LEUKOCYTE ESTERASE NEGATIVE Leu/uL (Negative); URINE UROBILINOGEN NORMAL mg/dL (0.2-1.0); WBC URINE 10 /hpf (0-5)
--- NOTE | 2016-11-28 16:50 | CT ---
PROCEDURE: CT Abdomen and Pelvis with contrast HISTORY: right sided abdominal pain ws/p paracentesis right side COMPARISON: CT 11/15/2016 TECHNIQUE: Contrast dose: 100 cc of Omnipaque 300 Radiation dose: Total exam DLP = mGy-cm. This CT exam was performed using one or more of the following dose reduction techniques: Automated exposure control, adjustment of the mA and/or kV according to patient size, and/or use of iterative reconstruction technique. FINDINGS: LOWER THORAX: Unremarkable. LIVER: The liver has a slightly irregular contour consistent with cirrhosis. There is severe ascites GALLBLADDER AND BILE DUCTS: Unremarkable. PANCREAS: Unremarkable. No gross lesion or ductal dilatation. SPLEEN: Unremarkable. ADRENALS: Unremarkable. No mass. KIDNEYS AND URETERS: Unremarkable. No hydronephrosis. No solid mass. VASCULATURE: Unremarkable. No aortic aneurysm. BOWEL: Unremarkable. No obstruction. No gross mural thickening. APPENDIX: Normal appendix. PERITONEUM: There is severe ascites unchanged from the prior study. There is no evidence of hemorrhage within the ascitic fluid. The fluid measures 6 Hounsfield units. There is no evidence of free air or obstruction LYMPH NODES: Unremarkable. No enlarged lymph nodes. BLADDER: Unremarkable. REPRODUCTIVE: Unremarkable. BONES: No acute fracture. OTHER FINDINGS: Due to a problem with the Internet and transmission of images I read this study on site a [facility] at 2 a.m. and discussed the findings with Dr. Tobar. IMPRESSION: Severe ascites with no evidence of hemorrhage or free air.
== END 2016-11-28 03:05 | disposition home or self-care (01) ==
LOC: C.ER 23:36 → MERGE 23:36 → C.ER 11-28 03:05
DX: R18.8 Other ascites (principal); R10.9 Unspecified abdominal pain; F10.120 Alcohol abuse with intoxication, uncomplicated; Y90.3 Blood alcohol level of 60-79 mg/100 ml; K74.60 Unspecified cirrhosis of liver
CPT/HCPCS: 74177; 80053; 81001; 85027; 85610; 85730; 99281; G0480